=== PATIENT | female | born 1940 | race Caucasian/White ===

== ENCOUNTER → 2016-04-14 | Day surgery (SDC) | payer MEDICARE, OTHER ==
[2016-04-14 10:33] LABS: HCT 36.4 % (37.0-47.0); HGB 11.7 g/dl (12.5-16.0); MCH 30.7 pg (25.0-31.0); MCHC 32.1 g/dL (32.0-36.0); MCV 95.5 fL (78.0-100.0); MPV 9.7 fL (6.0-9.5); RBC 3.81 M/uL (4.20-5.40); RDW 12.5 % (11.5-14.0); WBC 4.6 K/uL (4.0-10.5)
[2016-04-14 10:51] LABS: ALBUMIN 4.2 g/dL (3.4-4.8); BILIRUBIN - TOTAL 0.5 mg/dL (0.1-1.0); CREATININE 0.8 mg/dL (0.5-1.0); POTASSIUM 4.9 mmol/L (3.5-5.1); TOTAL PROTEIN 6.2 g/dL (6.4-8.3)
== END | disposition home or self-care (01) ==
LOC: FAS 13:37
PROVIDERS: Surgery
DX: Z46.59 Encounter for fitting and adjustment of other gastrointestinal appliance and device (principal); I10 Essential (primary) hypertension; E03.9 Hypothyroidism, unspecified; M85.80 Other specified disorders of bone density and structure, unspecified site; Z90.89 Acquired absence of other organs; Z98.890 Other specified postprocedural states; Z98.41 Cataract extraction status, right eye; Z98.42 Cataract extraction status, left eye; Z79.899 Other long term (current) drug therapy
CPT/HCPCS: 36415; 80053; J2704